=== PATIENT | female | born 1985 | race Caucasian/White ===

== ENCOUNTER 2018-03-30 03:44 | Emergency (ER) | payer BC, SELFPAY ==
[2018-03-30 03:45] VITALS: BP 136/100; PULSE 115; RESP 28; TEMP 36.9; O2SAT 99; BMI 27.4
--- NOTE | 2018-03-30 04:15 | ED.DCSUM_ITS ---
History of Present Illness Chief Complaint: Dental Informant: Patient Onset: Days - 3 Context: Gradual Onset Timing: Continuous Quality: ache Location: right jaw, radiating into ear canal Current Severity: Severe Maximum Severity: Severe Worsened by: moving jaw, chewing, drinking Relieved by: nothing Narrative: Patient states several days ago she was seen in [place] and received prescriptions for anti-inflammatory and penicillin VK which she has been taking for the last 2 days. She states tonight, the pain has severely worsened gradually. Past Medical History - Allergies and Home Meds Allergies/Adverse Reactions: Allergies No Known Allergies Allergy (Unverified 12/23/17 15:40) Primary Care Physician: Viet Reddy MD [Primary Care Provider] - Dentist,Your [STAFF PHYSICIAN] - As soon as possible Past Medical History: None Smoking Status: Current every day smoker Review of Systems General: Denies: Chills, Fever ENT: Reports: Right ear pain, - - dental/jaw pain Musculoskeletal: Denies: Swelling, Extremity Pain Neurological: Denies: Weakness, Parasthesia, Numbness Physical Exam Vital Signs/Narrative: Vital Signs Temp Pulse Resp BP Pulse Ox 03/30/18 03:45 98.4 F 115 H 28 H 136/100 H 99 Inital Vital Signs reviewed: Yes General: Well nourished, Well developed, - - pressured speech, hysterical/anxious Head: Normocephalic, Atraumatic Eyes: Perrl, EOMI ENT: Moist mucous membranes, No rhinorrhea, TM's clear - w/ effusion right side. no erythema or perforation. EAC erythemetous, nontender., - - deep silverio in tooth #31, very tender. surrounding gingival and buccal mucosal tenderness, but without collection/abscess or gingival swelling or bleeding. mild trismus. no sublingual fullness/tenderness. tongue normal. . Negative for: Sinus tenderness Neck: Supple, Nontender, No lymphadenopathy, No JVD Neurological: Alert, Oriented x3, Cranial nerves II-XII grossly intact, Normal Strength, Normal Sensation, Normal Gait Psychological: - - very anxious Diagnostic/Tx/Re-eval - Medical Decision Making Patient was amenable to a dental block, which provided good anesthesia but not 100% pain control. I then placed Cavit temporary filling within her dental silverio on the affected tooth. She has significant decay in her other teeth, but only one visible significant cavity. She has an effusion in her right ear but no sign of otitis. She states that she has been congested. She wanted additional pain control. I ordered her a [place] and went to prescribe her some, but it appears she is on Suboxone, she told the nurses on triage that she is not on it anymore but now she reverses that statement and states that yes she is on Suboxone. She did just fill it according to the oarrs report. She now states that she does not want narcotics, I agree that would be in her best interest to avoid those. She is given a Celebrex prior to discharge. Of note, she was s itting comfortably when I walked in the room to discuss this with her, and then suddenly began getting hysterical again acting like she was in severe pain when she told me that she was on Suboxone. I do not see any sign of an acute infection or abscess. I think it is okay that she continue the penicillin VK, and the other NSAID. Advised dentistry follow-up WILLIE. Procedures Procedure(s): Right inferior alveolar nerve block. 1.8 cc of Marcaine 0.5% with epinephrine, from dental cartridge. Pretreated with Cetacaine spray at site of injection and dental silverio. Tolerated procedure. No pus or blood with aspiration prior to injecting anesthetic. Good anesthesia obtained. ED Disposition - Plan for ED Patient: Disposition: Home or Assisted Living Chief Complaint: Dental Diagnosis: Odontalgia, Dental decay Instructions: ED Cavity Dental Prescriptions: Hydrocodone Bitart/Apap 5-325 [[place] 5MG-325MG] 1 tablet PO Q4H PRN PRN 2 Days #10 tablet PRN Reason: Pain Referrals: Viet Reddy MD [Primary Care Provider] - Dentist,Your [STAFF PHYSICIAN] - As soon as possible
[2018-03-30] MEDS: Celecoxib 200 MG Capsule PO (05:17)
[2018-03-30 05:19] VITALS: RESP 16
--- OUTSIDE RECORDS SUMMARY | 2018-05-23 22:24 | XMS RPT_ITS ---
:1985 Author Organization [facility] Care Team Providers Name Role Phone DILIP VAZQUEZ DO Attending Unavailable JEANNIE BA, DR. PARKER Primary Care Unavailable Stacy Alvarez Attending Unavailable MAXX TOSCANO Attending Unavailable Viet Reddy Primary Care Unavailable PROBLEMS PROBLEMS DATE TYPE CONDITION / CODE ATTENDING STATUS SOURCE 12/23/2017 Unknown R53.83 - Other Kim[place]acy giron Active [place] fatigue / Community R53.83(ICD-10) Hospital Repository 12/23/2017 Unknown Z30.8 - [place] for other Community contraceptive Hospital management / Repository Z30.8(ICD-10) PROCEDURES PROCEDURES No Procedure Records FoundRESULTS RESULTS EMERGENCY DEPARTMENT Observed: 03/30/2018 Status: F Source: [place] SUMMARY 5:17 AM [facility] REPOSITORY [facility] Medical Records Department [address] [place] [address] Emergency Department Summary 03/30/18 0411 MR#: [id number] Acct: [id number] Name: KVNG LOPEZ Rep #: [id number] : 1985 33 From: Maxx Toscano MD PCP: Viet Reddy MD Status: REG ER History of Present Illness Chief Complaint: Dental Informant: Patient Onset: Days - 3 Context: Gradual Onset Timing: Continuous Quality: ache Location: right jaw, radiating into ear canal Current Severity: Severe Maximum Severity: Severe Worsened by: moving jaw, chewing, drinking Relieved by: nothing Narrative: Patient states several days ago she was seen in [place] and received prescriptions for anti-inflammatory and penicillin VK which she has been taking for the last 2 days. She states tonight, the pain has severely worsened gradually. Past Medical History - Allergies and Home Meds Allergies/Adverse Reactions: Allergies No Known Allergies Allergy (Unverified 12/23/17 15:40) Primary Care Physician: Viet Reddy MD [Primary Care Provider] - Dentist,Your [STAFF PHYSICIAN] - As soon as possible Past Medical History: None Smoking Status: Current every day smoker Review of Systems General: Denies: Chills, Fever ENT: Reports: Right ear pain, - - dental/jaw pain Musculoskeletal: Denies: Swelling, Extremity Pain Neurological: Denies: Weakness, Parasthesia, Numbness Physical Exam Vital Signs/Narrative: Vital Signs 03/30/18 03:45 98.4 F 115 H 28 H 136/100 H 99 Inital Vital Signs reviewed: Yes General: Well nourished, Well developed, - - pressured speech, hysterical/anxious Head: Normocephalic, Atraumatic Eyes: Perrl, EOMI ENT: Moist mucous membranes, No rhinorrhea, TM's clear - w/ effusion right side. no erythema or perforation. EAC erythemetous, nontender., - - deep silverio in tooth #31, very tender. surrounding gingival and buccal mucosal tenderness, but without collection/abscess or gingival swelling or bleeding. mild trismus. no sublingual fullness/tenderness. tongue normal. . Negative for: Sinus tenderness Neck: Supple, Nontender, No lymphadenopathy, No JVD Neurological: Alert, Oriented x3, Cranial nerves II-XII grossly intact, Normal Strength, Normal Sensation, Normal Gait Psychological: - - very anxious Diagnostic/Tx/Re-eval - Medical Decision Making Patient was amenable to a dental block, which provided good anesthesia but not 100% pain control. I then placed Cavit temporary filling within her dental silverio on the affected tooth. She has significant decay in her other teeth, but only one visible significant cavity. She has an effusion in her right ear but no sign of otitis. She states that she has been congested. She wanted additional pain control. I ordered her a A[place] and went to prescribe her some, but it appears she is on Suboxone, she told the nurses on triage that she is not on it anymore but now she reverses that statement and states that yes she is on Suboxone. She did just fill it according to the oarrs report. She now states that she does not want narcotics, I agree that would be in her best interest to avoid those. She is given a Celebrex prior to discharge. Of note, she was sitting comfortably when I walked in the room to discuss this with her, and then suddenly began getting hysterical again acting like she was in severe pain when she told me that she was on Suboxone. I do not see any sign of an acute infection or abscess. I think it is okay that she continue the penicillin VK, and the other NSAID. Advised dentistry follow-up WILLIE. Procedures Procedure(s): Right inferior alveolar nerve block. 1.8 cc of Marcaine 0.5% with epinephrine, from dental cartridge. Pretreated with Cetacaine spray at site of injection and dental silverio. Tolerated procedure. No pus or blood with aspiration prior to injecting anesthetic. Good anesthesia obtained. ED Disposition - Plan for ED Patient: Disposition: Home or Assisted Living Chief Complaint: Dental Diagnosis: Odontalgia, Dental decay Instructions: ED Cavity Dental Prescriptions: Hydrocodone Bitart/Apap 5-325 [[place] 5MG-325MG] 1 tablet PO Q4H PRN PRN 2 Days #10 tablet PRN Reason: Pain Referrals: iVet Reddy MD [Primary Care Provider] - Dentist,Your [STAFF PHYSICIAN] - As soon as possible What to do if you have Problems For any increased pain, shortness of breath, bleeding, nausea or vomiting, chest pain, or any unexpected problems, contact your Primary Care Provider. Call [facility] ([phone]) or report to the closest Emergency Room. Call 911 if necessary. 03/30/18 0517 <Electronically signed by Maxx Toscano MD> Date Maxx Toscano MD Cosigner Signature (If Indicated): Date CC: Viet Reddy MD FILM SPOOLER OFFICE VISIT Observed: 12/23/2017 Status: F Source: [place] REPORT 4:03 PM [facility] [address] [place] [address] OFFICE VISIT Date of Service: 12/23/17 MR#: [id number] Acct: [id number] Name: KVNG LOPEZ Rep #: [id number] : 1985 Provider: SHADY Alvarez Age/Sex: 32/F Location: [facility] Status: Signed Intake Vital Signs12/23/17 Height 5 ft 4 in 12/23/17 Weight: 175 lb 12/23/17 Body Mass Index (BMI) 30.0 12/23/17 Blood Pressure 116/78 Intake Visit Reasons: cramping IUD was due to come out in 09/2017 Press Feeder Required: No Is patient in pain?: Yes Pain scale (1-10): 6 Allergies No Known Allergies Allergy (Unverified 12/23/17 15:40) Medications NK [NK] 12/23/17 [History Confirmed 12/23/17] Is last menstrual period known: No Post menopausal: No Patient : No : No PFSH Family History Mother History of high cholesterol Social History number of children: 3 current occupational status: employed current occupation: [employer] Smoking Status: Current every day smoker alcohol intake: never substance use type: does not use seatbelt use: always do you feel safe at home: Yes additional social history: [place] Bhakta HPI cramping IUD was due to come out in 09/2017: Details: KVNG LOPEZ is a 32 year old who presents for complaint of cramping and off and on bleeding with mirena IUD that was due to be replaced in September 2017. She states that she is very ill today, not able to keep fluids down, sore throat X 3 days but was unsure if she could reschedule. She is due for pap today too Pregancy History 3 Elective abortions Hx Para 3 Spontaneous abortions Past Pregnancies Del. DateName GA/Weeks Outcome Route Bth WeighInfant GeLabor LgtAnesthesiDel LocatProvider FOB t n h a n Assessment AND Plan Problems 1. Encounter for other contraceptive management Z30.8 Plan Discussed that insurance authorization needs done prior to replacing the IUD. Because of illness will defer exam also. Plan RTO 2 weeks for pap and mirena IUD replacement. Orders Orders: Coding Level of Care Code No Charge Diagnoses Encounter for other contraceptive management Z30.8 Contraceptive encounter type: other encounter for contraceptive management 12/23/17 1603 <Electronically signed by Stacy PA> Date Stacy Alvarez NP-C Cosigner Signature: Date (if applicable) CC: ALLERGIES ALLERGIES DATE TYPE / CODE NAME / CODE REACTION SEVERITY SOURCE 12/23/2017 Drug No Known Unknown [place] [facility] Allergy/4160 Allergies/F00 [facility] 10171(SNOMED 0732897(RXNOR Repository CT) M) ENCOUNTERS ENCOUNTERS ADMIT/DISCHARGE ACCOUNT NUMBER ADMITTING ENCOUNTER LOCATION SOURCE CLASS 03/30/2018/03/30/20 [id number] Emergency [place] [facility] ding:ED Repository 03/28/2018/03/28/20 [id number] Emergency BBuilding:ER [place] [facility] Repository 12/23/2017/12/24/19 [id number] Ambulatory BMSBuilding: [place] [facility] Repository PAYERS PAYERS ENCOUNTER GUARANTOR PAYER SUBSCRIBER SOURCE 03/30/2018 KVNG Primary [id number] Insurance:ANTHEMPolic BlankenshipDOB: [facility] [place]: [id number] [id number] Repository [address]Vqm: ([phone]) Date:[id number] [phone] () [id number], [place] [address]JP: 03/30/2018 Secondary NOT GIVENUNK [place] Insurance:SELF PAY [facility]: Effective Repository Date:2018-03-30 03/28/2018 KVNG Primary FIONA [facility] BLANKENSHIPDOB: Insurance:ANTHEM BLUE BLANKENSHIPDOB: [facility] [id number] Repository [facility] Number: [place], [place] [id number] [place], [place] [address]Rvo: (330) Date:2018-03-28 [id number]: () [id number] [phone] Name:ARLINE TAPIA ()Tel: [phone], [place] [phone] () [address]YX: 12/23/2017 KVNG Primary Fiona Milian [id number] Insurance:ANTHEMPolic BlankenshipDOB: [facility] Number: [id number], [place] [id number] Repository [address]Fqt: ([phone]) Date:[id number] [phone] () [id number], [place] [address]JR: 12/23/2017 Secondary NOT GIVENUNK [place] Insurance:SELF PAY [facility] Number: Effective Repository Date:2017-12-23
== END 2018-03-30 05:20 | disposition home or self-care (01) ==
PROVIDERS: Emergency Provider Emergency Medicine; Family Provider Family Medicine; PCP Family Medicine
DX: K08.89 Other specified disorders of teeth and supporting structures (principal); K02.9 Dental caries, unspecified; F17.200 Nicotine dependence, unspecified, uncomplicated
CPT/HCPCS: 64402; 99283

== ENCOUNTER 2018-07-18 15:15 | Emergency (ER) | payer BC, SELFPAY ==
[2018-07-18 15:16] VITALS: BP 125/82; PULSE 98; RESP 16; TEMP 36.1; O2SAT 97; BMI 29.2
--- NOTE | 2018-07-18 16:32 | ED.VISSUMM ---
- ER Visit Summary Date of Service: 07/18/18 Chief Complaint: Facial pain History of Present Illness: The patient is a 33 F patient sent here from PCP office after being evaluated for IV fluids. She is told to come here after receiving a bone scan of her face along with getting lab draws. She is been dealing with right lower jaw pain since March. She is been seeing a dentist Dr. Elias) states has had a lower dental area on the right side removed. Reports had 7 rounds of antibiotics finished last yesterday. Has seen ENT Dr. Griffin with toe be reevaluated after her teeth were pulled. Been having intermittent fevers. No trouble swallowing. Saw PCP office today with ROCK STAR Nataly Jeong. Reports being referred to an oral maxillary surgeon by her dentist. She is on Suboxone therapy. Using ibuprofen and Tylenol. Smokes 1 pack/day. Also reports during the labs there is benign tubes drawn however they were unable to draw the ESR. Reports her SHRINKER was going order TSH however she has not been there. Physical Examination: General: Alert and oriented ?3, no acute distress HEENT: Normocephalic, atraumatic. Moist mucosa membranes molars. There is no abscess. No drainage. TMs are normal bilaterally. No fluid behind the TMs. Neck: supple, nontender. Cardiovascular: Regular rate and rhythm, no murmurs Respiratory: Normal breath sounds, symmetric, no distress Abdomen: Soft, nontender, nondistended Extremities: Nontender, no edema, pulses intact ?4 Neuro: no focal neurological deficits. Test Results: ESR: 3 Emergency Department Course and Treatment: Patient vitals stable clinically not dehydrated. Discussed and offered if she is on IV fluids however she declined stating she did not feel she needed one IV. She is drinking Gatorade in the room. Due to lab reporting ESR unable to be obtained, she agreed, returned at 3. Discuss that her bone scan that was performed will be more helpful and diagnostics in the lab draws. She will await the results by her PCP office. She will keep her follow-ups with possible referral to oral maxillary surgeon and her ENT. All questions were answered. Treatment Plan: [] Disposition: Discharge Impression: Right facial pain This note was generated with Procurify dictation software. It may contain incorrect words, spelling, and punctuation that were not noted in review of the chart prior to signing ED Disposition - Plan for ED Patient: Referrals: Nataly Jeong, SHADY-C [Primary Care Provider] - 3-5 Days Additional Instructions: PCP office should follow-up on results of the bone scan performed today. Continue oral hydration. Call your ENT Dr. Vegas for follow-up. Weight your referral to oral maxillary surgery.
[2018-07-18 16:34] LABS: Erythrocyte Sedimentation Rate 3 mm/hr (0-20)
--- NOTE | 2018-07-18 16:38 | ED.DCSUM_ITS ---
- ER Visit Summary Date of Service: 07/18/18 Chief Complaint: Facial pain History of Present Illness: The patient is a 33 F patient sent here from PCP office after being evaluated for IV fluids. She is told to come here after receiving a bone scan of her face along with getting lab draws. She is been dealing with right lower jaw pain since March. She is been seeing a dentist Dr. Elias) states has had a lower dental area on the right side removed. Reports had 7 rounds of antibiotics finished last yesterday. Has seen ENT Dr. Griffin with toe be reevaluated after her teeth were pulled. Been having intermittent fevers. No trouble swallowing. Saw PCP office today with FIELD SALES MANAGER Nataly Jeong. Reports being referred to an oral maxillary surgeon by her dentist. She is on Suboxone therapy. Using ibuprofen and Tylenol. Smokes 1 pack/day. Also reports during the labs there is benign tubes drawn however they were unable to draw the ESR. Reports her ETHNOLOGY PROFESSOR was going order TSH however she has not been there. Physical Examination: General: Alert and oriented ?3, no acute distress HEENT: Normocephalic, atraumatic. Moist mucosa membranes molars. There is no abscess. No drainage. TMs are normal bilaterally. No fluid behind the TMs. Neck: supple, nontender. Cardiovascular: Regular rate and rhythm, no murmurs Respiratory: Normal breath sounds, symmetric, no distress Abdomen: Soft, nontender, nondistended Extremities: Nontender, no edema, pulses intact ?4 Neuro: no focal neurological deficits. Test Results: ESR: 3 Emergency Department Course and Treatment: Patient vitals stable clinically not dehydrated. Discussed and offered if she is on IV fluids however she declined stating she did not feel she needed one IV. She is drinking Gatorade in the room. Due to lab reporting ESR unable to be obtained, she agreed, returned at 3. Discuss that her bone scan that was performed will be more helpful and diagnostics in the lab draws. She will await the results by her PCP office. She will keep her follow-ups with possible referral to oral maxillary surgeon and her ENT. All questions were answered. Treatment Plan: [] Disposition: Discharge Impression: Right facial pain This note was generated with Sokoos dictation software. It may contain incorrect words, spelling, and punctuation that were not noted in review of the chart prior to signing ED Disposition - Plan for ED Patient: Referrals: Nataly Jeong, SHADY-C [Primary Care Provider] - 3-5 Days Additional Instructions: PCP office should follow-up on results of the bone scan performed today. Continue oral hydration. Call your ENT Dr. Vegas for follow-up. Weight your referral to oral maxillary surgery.
== END 2018-07-18 17:03 | disposition home or self-care (01) ==
PROVIDERS: Emergency Provider Emergency Medicine; Family Provider Nurse Practitioner Family; PCP Nurse Practitioner Family
DX: R51 Headache (principal); F17.210 Nicotine dependence, cigarettes, uncomplicated; R50.9 Fever, unspecified
CPT/HCPCS: 85652; 99282; A4216